=== PATIENT | female | born 1975 | race Hispanic/Latino ===

== ENCOUNTER 2016-06-04 14:59 | Day surgery (SDC) | payer OTHER ==
[2016-06-04] MEDS ORDERED: PROLIA SUB-Q ONE (15:13)
[2016-06-04 15:41] VITALS: BP 153/88
== END 2016-06-04 15:55 | disposition home or self-care (01) ==
LOC: OPU 14:59
PROVIDERS: ATTEND Specialist
DX: M81.0 Age-related osteoporosis without current pathological fracture (principal)
CPT/HCPCS: 96372; J0897